=== PATIENT | male | born 1970 | race Caucasian/White ===

== ENCOUNTER 2016-09-09 10:10 | Emergency (ER) | payer MEDICARE, OTHER | END 2016-09-09 12:27 | disposition home or self-care (01) | LOC: ER1 10:10 | DX: M54.5 Low back pain (principal); G89.29 Other chronic pain; F17.200 Nicotine dependence, unspecified, uncomplicated; Z88.0 Allergy status to penicillin; Z79.899 Other long term (current) drug therapy | CPT/HCPCS: 96372; 99283; J1100; J1885 ==

== ENCOUNTER 2020-11-07 11:54 | Emergency (ER) | payer OTHER ==
[~2020-11-07 11:54] MED LIST: BACTRIM DS TAB1 EACH PO; IBU800 MG PO; KEFLEX CAP 500500 MG PO; KEFLEX500 MG PO; PERCOCET 5-3251 EACH PO; ZOFRAN4 MG PO
== END 2020-11-07 14:15 | disposition left against medical advice (07) ==
LOC: ER1 11:54
DX: Z53.21 Procedure and treatment not carried out due to patient leaving prior to being seen by health care provider (principal)